=== PATIENT | male | born 1970 | race Caucasian/White ===

== ENCOUNTER 2024-04-02 18:26 | Inpatient (IN) | payer SELFPAY ==
[2024-04-02] MEDS ORDERED: Bupivacaine PF 0.5% 30 ML VIAL ONE (19:08)
[2024-04-02] MEDS ORDERED: Bacitracin Zinc Ointment 30 gm TUBE ONE (19:08)
[2024-04-02] MEDS ORDERED: SUCCINYLCHOLINE/SOD CL,ISO/PF 200 MG/10 ML SYRINGE FS ONE (19:14)
[2024-04-02] MEDS ORDERED: PROPOFOL 20 ML ONE (19:14)
[2024-04-02] MEDS ORDERED: Lidocaine 1% PF 5 ML VIAL ONE (19:14)
[2024-04-02] MEDS ORDERED: Acetaminophen 325 MG TAB PO PRN (19:15)
[2024-04-02] MEDS ORDERED: Ondansetron PF 4 MG/2 ML Vial IVP PRN (19:15)
[2024-04-02] MEDS ORDERED: Dextrose 5% in Water 1,000 ML IV PRN (19:19)
[2024-04-02] MEDS ORDERED: Insulin Lispro 100 UNIT/ML 10 ML VIAL SC PRN (19:19)
[2024-04-02] MEDS ORDERED: Glucagon 1 MG/ML KIT IM PRN (19:19)
[2024-04-02] MEDS ORDERED: PHENYLEPHRINE-NS 100 MCG/ML 10 ML SYRINGE ONE (19:52)
[2024-04-02] MEDS ORDERED: Vancomycin 1 GM VIAL ONE (20:00)
[2024-04-02] MEDS ORDERED: Piperacillin/Tazobactam 3.375 GM in Sodium Chloride 0.9% 100 ML IVPB SCH (20:30)
[2024-04-02] MEDS ORDERED: fentaNYL 50 mcg/mL 1 mL Vial ONE (20:53)
[2024-04-02] MEDS ORDERED: Sodium Chloride 0.9% 250 ML 0 ML ONE ×2 (20:57)
[2024-04-02] MEDS ORDERED: Meperidine HCl/PF 25 MG (1 mL) VIAL IM PRN ×2 (20:58→21:11)
[2024-04-02] MEDS ORDERED: Vancomycin 1 GM in Premix 1 BAG IVPB SCH (21:00)
[2024-04-02 22:49] VITALS: BMI 140.0
[2024-04-03] MEDS: Heparin 5,000 UNITS/ML VIAL SC SCH (00:31)
[2024-04-03] MEDS: Morphine 2 MG/ML VIAL SLOW IVP PRN (00:32)
[2024-04-03] MEDS: Piperacillin/Tazobactam 3.375 GM in Sodium Chloride 0.9% 100 ML IVPB SCH (02:48)
[2024-04-03] MEDS: Cefepime 2 GM in Sodium Chloride 0.9% 100 ML IVPB SCH (04:32)
[2024-04-03 05:18] LABS: #Basophils 0.05 10x3/uL (0.0-0.2); %Basophils 0.9 % (0.0-1.0); %Eosinophils 5.6 % (0.0-10.0); %Lymphocytes 24.4 % (21.0-51.0); %Monocytes 15.3 % (0.0-10.0); %Neutrophils 53.4 % (42.0-75.0); Hematocrit 29.8 % (42.0-52.0); Hemoglobin 9.6 g/dL (14.0-18.0); Mean Corpuscular HGB CONC 32.2 g/dL (32.0-36.0); Mean Corpuscular Hemoglobin 26.8 pg (27.0-31.0); Mean Corpuscular Volume 83.2 fL (78.0-98.0); Mean Platelet Volume 9.6 fL (7.4-10.4); Platelet Count 310 10x3/uL (130-400); RBC Distribution Width 13.4 % (11.5-14.5); Red Blood Cell (RBC) Count 3.58 mill/uL (4.70-6.10)
[2024-04-03 05:34] LABS: Hemoglobin A1c 11.7 % (4.0-6.0)
[2024-04-03 05:40] LABS: Vancomycin, Random 32.8 ug/mL (See Comment)
[2024-04-03 05:41] LABS: Anion Gap 10 mmol/L (10-20); BUN (Urea Nitrogen) 12 mg/dL (8.4-25.7); Calc. Creatinine Clearance 80 mL/min (70-130); Calcium 8.4 mg/dL (7.8-10.44); Carbon Dioxide 28 mmol/L (22-29); Chloride 103 mmol/L (98-107); Estimated GFR 91; Glucose 189 mg/dL (70-105); Potassium 3.7 mmol/L (3.5-5.1); Sodium 137 mmol/L (136-145)
[2024-04-03] MEDS: Insulin Lispro 100 UNIT/ML 10 ML VIAL SC PRN (06:29)
[2024-04-03] MEDS: metFORMIN 500 MG TAB PO SCH (08:56)
[2024-04-03] MEDS ORDERED: Vancomycin 1 GM in Sodium Chloride 0.9% 250 ML 250 ML IVPB SCH (09:00)
[2024-04-03 14:17] VITALS: BMI 21.7
[2024-04-03] MEDS: glipiZIDE 5 MG TAB PO SCH (15:27)
[2024-04-03] MEDS ORDERED: Magnevist 469MG/ML 20 ML VIAL ONE (15:34)
[2024-04-03] MEDS ORDERED: Vancomycin 1.5 GRAM/300 ML BAG 1.5 GM in Premix 1 BAG IVPB SCH (16:00)
[2024-04-03] MEDS: VANCOMYCIN 1.25 GM/250 ML BAG 1.25 GM in Premix 1 BAG IVPB SCH (17:37)
[2024-04-03] MEDS: Morphine 4 MG/ML VIAL SLOW IVP PRN (18:06)
[2024-04-04] MEDS ORDERED: Insulin Lispro 100 UNIT/ML 10 ML VIAL SC PRN (08:40)
[2024-04-04 09:29] LABS: Hemoglobin 9.6 g/dL (14.0-18.0); Mean Corpuscular Hemoglobin 26.4 pg (27.0-31.0); Mean Corpuscular Volume 82.6 fL (78.0-98.0); Mean Platelet Volume 9.5 fL (7.4-10.4); Platelet Count 310 10x3/uL (130-400); RBC Distribution Width 13.4 % (11.5-14.5); Red Blood Cell (RBC) Count 3.63 mill/uL (4.70-6.10)
[2024-04-04 09:46] LABS: Calc. Creatinine Clearance 76 mL/min (70-130); Estimated GFR 85
[2024-04-04 09:47] LABS: Anion Gap 11 mmol/L (10-20); BUN (Urea Nitrogen) 11 mg/dL (8.4-25.7); Carbon Dioxide 28 mmol/L (22-29); Chloride 100 mmol/L (98-107); Glucose 74 mg/dL (70-105); Potassium 3.5 mmol/L (3.5-5.1); Sodium 135 mmol/L (136-145)
[2024-04-04] MEDS ORDERED: Midazolam HCl 2 mg/2 ml Vial ONE (12:49)
[2024-04-04] MEDS ORDERED: PROPOFOL 20 ML ONE (12:57)
[2024-04-04] MEDS ORDERED: Lidocaine 1% PF 5 ML VIAL ONE (12:58)
[2024-04-04] MEDS ORDERED: Sodium Chloride 0.9% 100 ML ONE (13:29)
[2024-04-04] MEDS ORDERED: Cefepime 2 GM VIAL ONE (13:29)
[2024-04-04] MEDS ORDERED: Lidocaine 2% 6 ML (Jelly) SYR ONE (13:38)
[2024-04-04] MEDS ORDERED: PHENYLEPHRINE-NS 100 MCG/ML 10 ML SYRINGE ONE (13:45)
[2024-04-04] MEDS ORDERED: Ondansetron PF 4 MG/2 ML Vial ONE (13:46)
[2024-04-04] MEDS ORDERED: Ondansetron HCl/PF 4 MG/2 ML Vial IVP PRN (14:33)
[2024-04-04] MEDS ORDERED: HYDROmorphone 2 MG/ML VIAL SLOW IVP PRN (14:33)
[2024-04-04] MEDS ORDERED: Promethazine HCl 25 MG/ML VIAL IM PRN (14:33)
[2024-04-04] MEDS: Cefepime 2 GM in Sodium Chloride 0.9% 100 ML IVPB SCH (16:46)
[2024-04-04] MEDS: traMADol HCl 50 MG TAB PO PRN (18:03)
[2024-04-05 05:48] LABS: Hematocrit 30.2 % (42.0-52.0); Hemoglobin 9.8 g/dL (14.0-18.0); Mean Corpuscular HGB CONC 32.5 g/dL (32.0-36.0); Mean Corpuscular Hemoglobin 26.7 pg (27.0-31.0); Mean Corpuscular Volume 82.3 fL (78.0-98.0); Mean Platelet Volume 9.8 fL (7.4-10.4); Platelet Count 326 10x3/uL (130-400); RBC Distribution Width 13.3 % (11.5-14.5); Red Blood Cell (RBC) Count 3.67 mill/uL (4.70-6.10)
[2024-04-05 05:52] LABS: Vancomycin, Random 24.6 ug/mL (See Comment)
[2024-04-05 05:53] LABS: Anion Gap 12 mmol/L (10-20); BUN (Urea Nitrogen) 11 mg/dL (8.4-25.7); Calc. Creatinine Clearance 82 mL/min (70-130); Calcium 8.5 mg/dL (7.8-10.44); Carbon Dioxide 26 mmol/L (22-29); Chloride 100 mmol/L (98-107); Estimated GFR 93; Glucose 98 mg/dL (70-105); Potassium 3.8 mmol/L (3.5-5.1); Sodium 134 mmol/L (136-145)
[2024-04-05] MEDS ORDERED: Lidocaine 1% PF 5 ML VIAL ONE (13:50)
[2024-04-05] MEDS ORDERED: Sodium Bicarbonate 2.5 MEQ/5 ML SDV ONE (13:50)
[2024-04-05] MEDS: Enoxaparin 40 MG (0.4 mL) SYRINGE SC SCH (21:48)
[2024-04-06] MEDS: cefTRIAXone\\ROCEPHIN 2 GM in Sodium Chloride 0.9% 100 ML IVPB SCH (13:41)
[2024-04-07] MEDS: Dextrose 50% Abboject 50 ML SYRINGE SLOW IVP PRN (04:51)
[2024-04-07 05:43] LABS: Hematocrit 31.3 % (42.0-52.0); Hemoglobin 9.9 g/dL (14.0-18.0); Mean Corpuscular HGB CONC 31.6 g/dL (32.0-36.0); Mean Corpuscular Hemoglobin 26.4 pg (27.0-31.0); Mean Corpuscular Volume 83.5 fL (78.0-98.0); Mean Platelet Volume 9.5 fL (7.4-10.4); Platelet Count 263 10x3/uL (130-400); RBC Distribution Width 13.4 % (11.5-14.5); Red Blood Cell (RBC) Count 3.75 mill/uL (4.70-6.10)
[2024-04-07 05:58] LABS: Anion Gap 12 mmol/L (10-20); BUN (Urea Nitrogen) 14 mg/dL (8.4-25.7); Calc. Creatinine Clearance 78 mL/min (70-130); Calcium 9.2 mg/dL (7.8-10.44); Carbon Dioxide 29 mmol/L (22-29); Chloride 99 mmol/L (98-107); Estimated GFR 88; Glucose 178 mg/dL (70-105); Potassium 3.2 mmol/L (3.5-5.1); Sodium 137 mmol/L (136-145)
[2024-04-07] MEDS ORDERED: Bacitracin Zinc Ointment 30 gm TUBE ONE (07:44)
[2024-04-07] MEDS ORDERED: Bupivacaine PF 0.5% 30 ML VIAL ONE (07:44)
[2024-04-07] MEDS ORDERED: Vancomycin 1 GM VIAL ONE ×2 (07:44→07:46)
[2024-04-07] MEDS ORDERED: Lidocaine 1% PF 5 ML VIAL ONE (07:58)
[2024-04-07] MEDS ORDERED: Ondansetron PF 4 MG/2 ML Vial ONE (07:58)
[2024-04-07] MEDS ORDERED: fentaNYL PF 100 MCG/2 ML SYRINGE ONE (07:58)
[2024-04-07] MEDS ORDERED: PROPOFOL 20 ML ONE (07:58)
[2024-04-07] MEDS ORDERED: Lidocaine 2% 6 ML (Jelly) SYR ONE (07:59)
[2024-04-07] MEDS ORDERED: PHENYLEPHRINE-NS 100 MCG/ML 10 ML SYRINGE ONE (08:18)
[2024-04-07] MEDS: Potassium Chloride 20 MEQ TAB PO SCH (10:38)
[2024-04-07] MEDS: HYDROcodone/Acetaminophen 10/325 mg Tablet PO PRN (23:17)
[2024-04-08 05:33] LABS: Hematocrit 31.4 % (42.0-52.0); Mean Corpuscular HGB CONC 31.8 g/dL (32.0-36.0); Mean Corpuscular Hemoglobin 26.7 pg (27.0-31.0); Mean Platelet Volume 9.3 fL (7.4-10.4); Platelet Count 284 10x3/uL (130-400); RBC Distribution Width 13.5 % (11.5-14.5); Red Blood Cell (RBC) Count 3.74 mill/uL (4.70-6.10)
[2024-04-08 05:54] LABS: Anion Gap 12 mmol/L (10-20); BUN (Urea Nitrogen) 12 mg/dL (8.4-25.7); Calc. Creatinine Clearance 79 mL/min (70-130); Carbon Dioxide 31 mmol/L (22-29); Chloride 99 mmol/L (98-107); Estimated GFR 89; Glucose 66 mg/dL (70-105); Potassium 3.9 mmol/L (3.5-5.1); Sodium 138 mmol/L (136-145)
[2024-04-08] MEDS ORDERED: HumaLOG 300 UNITS/3 ML VIAL SC PRN (11:08)
[2024-04-08] MEDS ORDERED: Insulin Lispro 100 UNIT/ML 10 ML VIAL SC PRN (11:15)
[2024-04-08] MEDS: Tetrahydrozoline 0.05% OPTH 15 ML BOT EA EYE SCH (21:25)
[2024-04-08] MEDS: Pantoprazole 40 MG DR.TAB PO SCH (22:12)
[2024-04-09] MEDS: Pantoprazole 40 MG DR.TAB PO SCH (09:21)
[2024-04-09 15:45] VITALS: BP 119/77; TEMP 97.3
== END 2024-04-09 17:15 | disposition home or self-care (01) | DRG 623 ==
LOC: SURG A 18:26
PROVIDERS: ADMIT Internal Medicine; ATTEND Internal Medicine
PROC: 0LB70ZZ Excision of Right Hand Tendon, Open Approach (ICD-10-PCS; principal; 2024-04-02)
PROC: 0X6N0Z1 Detachment at Right Index Finger, High, Open Approach (ICD-10-PCS; 2024-04-02)
PROC: 0JBR0ZZ Excision of Left Foot Subcutaneous Tissue and Fascia, Open Approach (ICD-10-PCS; 2024-04-04)
PROC: 0PBT0ZZ Excision of Right Finger Phalanx, Open Approach (ICD-10-PCS; 2024-04-07)
DX: E11.69 Type 2 diabetes mellitus with other specified complication (principal); E87.1 Hypo-osmolality and hyponatremia; M86.9 Osteomyelitis, unspecified; L97.429 Non-pressure chronic ulcer of left heel and midfoot with unspecified severity; E11.65 Type 2 diabetes mellitus with hyperglycemia; E11.649 Type 2 diabetes mellitus with hypoglycemia without coma; D63.1 Anemia in chronic kidney disease; E87.6 Hypokalemia; Z88.0 Allergy status to penicillin; M65.941 Unspecified synovitis and tenosynovitis, right hand; E11.621 Type 2 diabetes mellitus with foot ulcer
CPT/HCPCS: 36415; 36416; 36573; 80048; 80202; 82565; 83036; 85025; 85027; 86141; 87070; 87076; 87077; 87081; 87186; 87205; 88307; 88311; 97139; C1751; J0665; J0692; J0696; J1644; J1650; J1815; J2250; J2270; J2272; J2405; J2704; J3010; J3370; J7050; J7999